=== PATIENT | male | born 1980 | race Caucasian/White ===

== ENCOUNTER 2023-03-05 14:50 | Emergency (ER) | payer OTHER, SELFPAY ==
[2023-03-05 14:56] VITALS: BP 167/112; PULSE 102; RESP 20; TEMP 36.6; O2SAT 100
--- NOTE | 2023-03-05 15:02 | ED.SKABFB ---
HPI - Skin/Abscess/Foreign Bdy General Chief complaint: Wound/Laceration Stated complaint: right hand ring finger swollen Time Seen by Provider: 03/05/23 14:56 Source: patient and RN notes reviewed Mode of arrival: ambulatory Limitations: dementia History of Present Illness HPI narrative: 42-year-old male presents with concern for swelling, pain, redness to the 4th digit of the right hand. Reports over 1 week ago he injected fentanyl and that has finger. He reports he has had symptoms for about a week. He reports he gets these infections often. He denies fever, aches, chills, sweats. MD complaint: abscess/boil and other (Redness) Related Data Allergies Allergy/AdvReac Type Severity Reaction Status Date / Time No Known Allergies Allergy Verified 03/05/23 15:01 Review of Systems Review of Systems: CONSTITUTIONAL: Denies malaise, chills, sweats, or fever. EYES: Denies redness, or discharge. ENT: Denies rhinorrhea, congestion, swollen lips, swollen tongue CARDIOVASCULAR: Denies chest pain, palpitations, or edema. RESPIRATORY: Denies cough or dyspnea. GASTROINTESTINAL: Denies abdominal pain, nausea, vomiting SKIN: Reports redness, swelling, pain to the 4th digit of the right hand. Denies purulent drainage, vesicles, bullae, pain beyond proportion MUSCULOSKELETAL: Denies joint pain or myalgia. NEUROLOGIC: Denies headache. All systems reviewed & are unremarkable except as noted in HPI and below PMFSH Comments At time of signature, agree with nursing past medical, surgical, social and family history. There is no relevant family history pertinent to the presenting complaint Exam Narrative: GENERAL: Well-appearing, well-nourished, and in no acute distress. HEAD: Normocephalic, atraumatic. EYES: PERRLA, conjunctivae clear ENT: Mucous membranes moist. NECK: Supple. No lymphadenopathy CHEST: Clear to auscultation. No respiratory distress. HEART: Regular rate and rhythm. SKIN: Warm, dry. The entire 4th digit of the right hand as noted to have erythema, induration, tenderness, warmth, significant edema, wound with a black tissue bed noted to the medial digit. NEURO: Alert and oriented x3. PSYCH: Normal mood and affect Course Course Emergency Course: Anticipatory guidance given. Patient agrees to follow-up as directed and is aware of reasons to seek care at the emergency department. Portions of this record may have been created with voice recognition software Level of Care: Express Care Visit Vital Signs Vital signs: Reviewed. MDM - Skin/Abscess/Foreign Bdy MDM Narrative Medical decision making narrative: Exam findings warm further evaluation emergency department, patient was offered transfer to emergency department for further evaluation but he frankly stated that he will not go to the emergency room at this time that he gets these infections often. I advised patient that we can treat with oral antibiotics but that might not be significant and he may need to go to the emergency room, he agrees he will go to the emergency room with the symptoms do not improve.; patient is non-toxic appearing and is in no distress. Critical Care Time Critical Care Time Critical Care Time: No Discharge Plan Discharge Clinical Impression: Soft tissue infection Patient Disposition: Home, Self-Care Condition: Stable Instructions: Antibiotic Form, Cellulitis (ED) Additional Instructions: Your infection likely needs treated in the emergency room with possible IV antibiotics. If you are able to go to the emergency room at any time you should do that. Please follow up with your Primary Care Doctor within 48-72 hours - call for an appointment. Rest and elevate affected area; apply moist heat 3-4 times daily for 10-15 minutes. Take Motrin 600mg every 8 hours with food for pain. Please take Antibiotics as directed. If you experience any worsening redness, swelling, streaking (red lines), fever or chills please go to the ER
== END 2023-03-05 15:10 | disposition home or self-care (01) ==
PROVIDERS: Emergency Provider Nurse Practitioner
DX: L08.9 Local infection of the skin and subcutaneous tissue, unspecified (principal); I10 Essential (primary) hypertension
CPT/HCPCS: 99203; G0463